=== PATIENT | male | born 1975 | race Asian ===

== ENCOUNTER → 2021-02-15 14:27 | Outpatient (CLI) | payer OTHER, SELFPAY ==
[2021-02-15] MEDS: COVID-19 VACC #1, MRNA(MOD) 100 MCG/0.5 ML VIAL IM (14:30)
== END ==
PROVIDERS: Visit Provider Internal Medicine
DX: Z23 Encounter for immunization (principal)
CPT/HCPCS: 0011A; 91301

== ENCOUNTER → 2021-03-16 15:26 | Outpatient (CLI) | payer OTHER, SELFPAY ==
[2021-03-16] MEDS: COVID-19 VACC #2, MRNA(MOD) 100 MCG/0.5 ML VIAL IM (15:34)
== END ==
PROVIDERS: Visit Provider Internal Medicine
DX: Z23 Encounter for immunization (principal)
CPT/HCPCS: 0012A; 91301

== ENCOUNTER 2021-07-19 06:12 | Emergency (ER) | payer OTHER, SELFPAY ==
[2021-07-19 06:15] VITALS: BP 117/92; PULSE 67; RESP 16; O2SAT 100; BMI 23.0
--- NOTE | 2021-07-19 06:18 | DI.RAD.S_ITS ---
PROCEDURE: XR FINGER RT MIN 2V INDICATIONS: smashed finger in machinery at work TECHNIQUE: AP hand, 2 views of the 3rd finger(s) acquired. COMPARISON: None. FINDINGS: Bones: No fractures or dislocations involving the 3rd finger. No suspicious bony lesions. Soft tissues: No suspicious soft tissue calcifications. IMPRESSION: No fracture. No acute osseous lesion. If symptoms and/or clinical suspicion for pathology persists, further assessment with repeat radiographs (7-10 days) or advanced imaging (e.g. CT, MRI or bone scan) should be considered. Dictated by: Lisset Michel MD, PhD on 07/19/2021 at 8:35 Approved by: Lisset Michel MD, PhD on 07/19/2021 at 8:36
[2021-07-19] MEDS: LIDOCAINE 1% (PF) 2 ML (06:54)
--- NOTE | 2021-07-19 07:12 | ED_ITS ---
HPI - Wound/Laceration General Chief Complaint: Wound/Laceration Stated Complaint: right hand 1 finger smashed at work Time Seen by Provider: 07/19/21 06:32 Source: patient Mode of arrival: Ambulatory Limitations: no limitations History of Present Illness HPI narrative: 46-year-old left-hand dominant male here for evaluation of a right middle finger injury. 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 He states the other individual lifted the material before him and he got his finger smashed under the bar that they were using to lift material. He did sustain injury to the pad of his right middle finger. Covered with a bandage in came to the emergency department for further evaluation. Related Data Home Medications Medication Instructions Recorded Confirmed No Known Home Medications 09/18/20 Allergies Allergy/AdvReac Type Severity Reaction Status Date / Time No Known Drug Allergies Allergy Unverified 09/18/20 15:11 Review of Systems Musculoskeletal Comments: Pain to the right middle finger Integumentary/Breasts Comments: Cut to the right middle finger Neurologic Neurologic: Reports system reviewed and no additional complaints, except as documented Hematologic/Lymphatic On Anticoagulants: No Patient History Medical History Healthy adult Social History Smoking Status: Current every day smoker Smoking Status: Current every day smoker Exam Initial Vital Signs Initial Vital Signs: Vital Signs Pulse Rate 67 07/19/21 06:15 Respiratory Rate 16 07/19/21 06:15 Blood Pressure 117/92 H 07/19/21 06:15 Pulse Oximetry 100 07/19/21 06:15 Const General: cooperative and comfortable Resp Effort & Inspection: normal respiratory effort Cardio Pulses: radial pulses present on the right Skin Other: Patient does have a partial avulsion of the pad of his right middle finger. There is no nail involvement. Does not cross the D IP joint. There is no bone involved. Neuro Sensory Exam: no sensory deficits noted Extrem Other: Skin injury to the right middle finger. Can flex and extend at the PIP and the IP joint. Psych Appearance: grossly normal Procedures Laceration Repair Laceration 1: Site: other (Right middle finger) Size (cm): 3 Description: flap Depth: simple, single layer Local Anesthetic: lidocaine 1% and with bicarb Amount of anesthesia used (mL): 5 Pre-repair: wound explored, irrigated extensively and deep structures intact Skin layer closed with: nylon Size (cm): 4-0 Number of sutures: 11 Technique: simple, interrupted Course Orders Ordered: ED Orders 07/19/21 06:18 XR finger RT min 2V Stat Discontinued Medications Bacitracin (Bacitracin Oint 0.9 Gm Pckt) 1 applic TOP NOW ONE Stop: 07/19/21 06:28 Last Admin: 07/19/21 07:39 Dose: 1 applic Documented by: BILLY Bacitracin (Bacitracin Oint 0.9 Gm Pckt) 1 applic TOP NOW ONE Stop: 07/19/21 07:21 Last Admin: 07/19/21 07:39 Dose: Not Given Documented by: BILLY Lidocaine/Sodium Bicarbonate (Lido 1%/Sod Bicarb 8.4% (10ml) 10 Ml Syringe) 10 ml INJ NOW ONE Stop: 07/19/21 07:21 Last Admin: 07/19/21 07:39 Dose: 10 ml Documented by: BILLY Vital Signs Vital signs: Vital Signs - 8 hr 07/19/21 06:15 Pulse Rate 67 Respiratory Rate 16 Blood Pressure 117/92 H Pulse Oximetry 100 MDM - Wound/Laceration Imaging Data Extremity x-ray #1: Radiologist's Impression: No acute bony abnormality involving the 3rd digit of the right hand [facility] Narrative Medical decision making narrative: Patient was neurovascularly intact. Digital block was performed by the night provider prior to my evaluation. I provided extra anesthesia with lidocaine with bicarb. This was a flap-type injury. I di d inform the patient that despite our interventions today the flap may not survive depending on the blood supply to it. It was closed as described above. There is no bony involvement. No foreign bodies noted. It was irrigated extensively prior to closure. Patient was given care instructions and return precautions. He expressed understanding and agreement. Discharge Plan Departure Patient Disposition: Home Clinical Impression: Laceration Instructions: DI for Laceration Repair Activity Restrictions/Additional Instructions: The bandage that was placed today in the emergency department should be left in place for the next 24 hours. After that you can take it off. You can wash your hands like normal using soap and water. You can place other topical antibiotic ointment on the area such as bacitracin or Neosporin. You can purchase these [id number]. The stitches do need to be removed in 7-10 days. This can be done by either your primary doctor or the walk-in clinic. Do not submerge your hand in any water until the skin has healed. You will ventrally be able to cover the area with just a Band-Aid. Return to the emergency department for any new or worsening symptoms. You can use Tylenol or ibuprofen for discomfort. Prescriptions: No Action No Known Home Medications RF: 0 Referrals: Miscellaneous,Doctor, MD [Primary Care Provider] -
[2021-07-19] MEDS: BACITRACIN OINT 0.9 GM PCKT 1 APPLIC TOP (07:39)
[2021-07-19] MEDS: LIDO 1%/SOD BICARB 8.4% (10ML) 10 ML SYRINGE INJ (07:39)
[2021-07-19 08:01] VITALS: TEMP 36.7
== END 2021-07-19 08:01 | disposition home or self-care (01) ==
PROVIDERS: Emergency Provider Emergency Medicine
DX: S61.212A Laceration without foreign body of right middle finger without damage to nail, initial encounter (principal); W23.0XXA Caught, crushed, jammed, or pinched between moving objects, initial encounter; Y99.0 Civilian activity done for income or pay
CPT/HCPCS: 12002; 73140; 99283; 99284

== ENCOUNTER → 2021-08-17 11:15 | Outpatient (CLI) | payer BC, SELFPAY ==
[2021-08-17 12:34] LABS: COVID19 -Nasal RAPID Negative (Negative)
== END ==
PROVIDERS: Visit Provider Physician Assistant
DX: Z20.822 Contact with and (suspected) exposure to COVID-19 (principal); R05 Cough
CPT/HCPCS: 87635

== ENCOUNTER 2024-07-16 09:55 | Emergency (ER) | payer BC, SELFPAY ==
[2024-07-16] VITALS (9 sets, daily range): BP systolic 115–163; BP diastolic 75–99; PULSE 54–64; RESP 12–22; TEMP 36.7; O2SAT 97–100; BMI 27.1
--- NOTE | 2024-07-16 10:15 | EKG_ITS ---
[address] [address] Test Date: 2024-07-16 Pat Name: Silvestre Shaw Department: Room: Gender: Male Rn Urgent Care: [facility] : 1975 Requested By: Order Number: [id number] Reading MD: Scott Escoto Measurements Intervals [place] Rate: 58 P: 51 ME: 146 QRS: 44 QRSD: 82 T: 39 QT: 398 QTc: 390 Interpretive Statements Sinus bradycardia Electronically Signed On 07-21-2024 9:11:00 PDT by Scott Escoto
--- NOTE | 2024-07-16 10:15 | DI.RAD.S_ITS ---
PROCEDURE: XR CHEST 1V INDICATIONS: chest pain TECHNIQUE: One view of the chest was acquired. COMPARISON: None. FINDINGS: Surgical changes and devices: None. Lungs and pleura: Lungs are clear. No pleural effusions or pneumothorax. Mediastinum: Mediastinal contours appear normal. Heart size is normal. Bones and chest wall: No suspicious bony lesions. Overlying soft tissues appear unremarkable. IMPRESSION: No acute cardiopulmonary abnormality is seen. Dictated by: Scar Cain M.D. on 07/16/2024 at 11:40 Approved by: Scar Cain M.D. on 07/16/2024 at 11:40
[2024-07-16 10:23] LABS: Add Manual Diff / Slide Review NO; Basophils Absolute Auto 100 /uL (0-100); Basophils Percent Auto 1.1 % (0-2); Eosinophils Absolute Auto 200 /uL (0-450); Hematocrit 44.7 % (41-53); Hemoglobin 14.9 g/dL (13.5-17.5); Lymphocytes Absolute Auto 1700 /uL (1100-4500); Lymphocytes Percent Auto 31.9 % (25-40); Mean Corpuscular HGB Conc 33.4 % (30-36); Mean Corpuscular Hemoglobin 31.3 PG (26-34); Mean Corpuscular Volume 93.9 fL (80-100); Monocytes Absolute Auto 500 /uL (0-900); Monocytes Percent Auto 9.1 % (3-14); Neutrophils Absolute Auto 3000 /uL (1500-7000); Neutrophils Percent Auto 54.9 % (50-75); Platelet Count 225 X10^3/uL (150-400); Red Blood Cell Count 4.77 X10^6/uL (4.5-5.9); Red Cell Distribution Width 14.5 % (11.6-14.8); White Blood Cell Count 5.5 X10^3/uL (4.5-11.0)
[2024-07-16 10:24] LABS: INR 0.9 (0.9-1.3); Prothrombin Time 10.2 SECONDS (9.4-12.5)
[2024-07-16 10:29] LABS: Alanine Aminotransferase 36 IU/L (<50); Albumin 4.6 g/dL (3.5-5.0); Albumin Globulin Ratio 1.3 (1.0-2.8); Alkaline Phosphatase 53 U/L (38-126); Aspartate Aminotransferase 39 IU/L (17-59); Bilirubin Total 0.7 mg/dL (0.2-1.3); Blood Urea Nitrogen 12 mg/dL (9-20); Carbon Dioxide 30 mmol/L (22-32); Chloride 101 mmol/L (98-107); Creatine Kinase 255 U/L (55-170); Estimated Glomerular Filt Rate > 60 mL/min (>60); Globulin 3.5 g/dL (1.7-4.1); Glucose 107 mg/dL (70-100); HEMOLYSIS < 15 (0-50); Lipase 50 U/L (23-300); Magnesium 2.2 mg/dL (1.6-2.3); Potassium 3.8 mmol/L (3.4-5.1); Sodium 136 mmol/L (137-145); Total Protein 8.1 g/dL (6.3-8.2)
--- NOTE | 2024-07-16 10:39 | ED_ITS ---
HPI - Dizziness General Chief Complaint: Dizziness Stated Complaint: Dizzy. Time Seen by Provider: 07/16/24 10:18 Source: patient Mode of arrival: Ambulatory History of Present Illness HPI Narrative: Patient is a 49-year-old male with a past medical history of vertigo coming into the ED from home for evaluation of dizziness. States that earlier today while he was at work he had a episode of vertigo, states it is similar to previous episodes, does take meclizine for this, states that it was worse than normal, states that it only lasts for several seconds to minutes and did improve after administration of meclizine prior to arrival. Currently he has not complaining of any headache visual disturbances dizziness chest pain shortness breath fever chills nausea vomiting abdominal pain or any other GI/ symptoms time. Related Data Previous Rx's Medication Instructions Recorded meclizine 25 mg tablet 25 mg PO DAILY PRN dizziness 14 07/16/24 days #14 tabs ondansetron 4 mg disintegrating 4 mg PO DAILY PRN nausea and 07/16/24 tablet vomiting 7 days #7 tabs Allergies Allergy/AdvReac Type Severity Reaction Status Date / Time No Known Drug Allergies Allergy Verified 07/19/23 14:57 Review of Systems Review of Systems Narrative: HEENT: Denies headache, eye drainage, eye irritation, head trauma, sore throat, voice change Cardiovascular: Denies any chest pain, palpitations, shortness of breath, tachycardia Respiratory: Denies any shortness of breath, cough, wheeze, stridor GI/: Denies any abdominal pain, nausea, vomiting, diarrhea, bright red blood per rectum, melanotic stools, urinary frequency, urinary retention, dysuria, hematuria MSK: Denies any joint pain, muscle pains, swelling Skin: Denies any rashes, lesions, discoloration Neuro: Denies any headache, lightheadedness, fainting, weakness, positive for dizziness Psych: Denies SI/HI Patient History Medical History Healthy adult Social History Smoking Status: Current every day smoker Smoking Status: Current every day smoker alcohol intake frequency: 0-2 drinks per day Substance Use Type: does not use Exam Narrative Exam Narrative: General: Cooperative, comfortable, well-developed, not in acute distress HEENT: Normocephalic, atraumatic, PERRLA, normal sclera, eyelids normal, Neck: Active full range of motion, atraumatic Chest: Normal to inspection, negative crepitus, no overlying erythema ecchymosis Respiratory: Normal respiratory effort, not in acute respiratory distress, clear to auscultation bilaterally negative cough, wheeze, tachypnea, rhonchi, rales Cardiology: Regular rate rhythm negative gallop, murmur, rubs GI/: Normal to inspection, soft, nonrigid, no tenderness to palpation, exam deferred MSK: Full range of active range of motion of all 4 extremities, atraumatic Skin: No rashes lesions noted Neuro: Alert awake oriented x3, moves all 4 extremities spontaneously, cranial nerves intact, able to answer all questions appropriately follows commands appropriately, NIH of 0 Psych: Cooperative, negative suicidal or homicidal ideations Initial Vital Signs Initial Vital Signs: Vital Signs Temperature 98.1 F 07/16/24 09:57 Pulse Rate 64 07/16/24 09:57 Respiratory Rate 14 07/16/24 09:57 Blood Pressure 163/99 H 07/16/24 09:57 Pulse Oximetry 99 07/16/24 09:57 Oxygen Delivery Method Room Air 07/16/24 09:57 Course Orders Ordered: ED Orders 07/16/24 10:10 Complete Blood Count AUTO DIFF Stat Comprehensive Metabolic Panel Stat Lipase Stat Magnesium Stat NT-proBNP (BNP-Adult 18+) Stat Prothrombin Time INR Stat Troponin & CK Cardiac Panel Stat 07/16/24 10:15 XR chest 1V Stat EKG-12 Lead Stat 07/16/24 10:41 CT angio head and neck Stat 07/16/24 10:42 CT head/brain wo con Stat EKG-12 Lead Stat Sodium Chloride (Normal Saline 0.9%) 1,000 mls @ 150 mls/hr IV CONT KAYE Last Admin: 07/16/24 11:11 Dose: 150 mls/hr Documented By: CAMPOS Ondansetron HCl (Ondansetron 4 Mg/2 Ml Inj) 4 mg IV NOW PRN PRN Reason: Nausea And Vomiting Last Admin: 07/16/24 11:10 Dose: 4 mg Documented By: CAMPOS Ondansetron HCl (Ondansetron 4 Mg Odt) 4 mg SL NOW PRN PRN Reason: Nausea And Vomiting Vital Signs Vital signs: Vital Signs - 8 hr 07/16/24 09:57 07/16/24 10:25 Temperature 98.1 F Pulse Rate 64 62 Respiratory Rate 14 22 Blood Pressure 163/99 H Pulse Oximetry 99 100 Oxygen Delivery Method Room Air MDM - Dizziness Differential Diagnosis Differential diagnosis: Likely other (CVA, vertigo, electrolyte abnormality, ACS, pneumonia, electrolyte abnormality) Lab Data 07/16/24 10:10 07/16/24 10:10 Labs: Lab Results 07/16/24 Range/Units 10:10 WBC 5.5 (4.5-11.0) X10^3/uL RBC 4.77 (4.5-5.9) X10^6/uL Hgb 14.9 (13.5-17.5) g/dL Hct 44.7 (41-53) % MCV 93.9 (80-100) fL MCH 31.3 (26-34) PG MCHC 33.4 (30-36) % RDW 14.5 (11.6-14.8) % Plt Count 225 (150-400) X10^3/uL Neut % (Auto) 54.9 (50-75) % Lymph % (Auto) 31.9 (25-40) % Thurston % (Auto) 9.1 (3-14) % Eos % (Auto) 3.0 (2-4) % Baso % (Auto) 1.1 (0-2) % Neut # (Auto) 3000 (1877-1741) /uL Lymph # (Auto) 1700 (2691-2915) /uL Thurston # (Auto) 500 (0-900) /uL Eos # (Auto) 200 (0-450) /uL Baso # (Auto) 100 (0-100) /uL PT 10.2 (9.4-12.5) SECONDS INR 0.9 (0.9-1.3) Sodium 136 L (137-145) mmol/L Potassium 3.8 (3.4-5.1) mmol/L Chloride 101 (98-107) mmol/L Carbon Dioxide 30 (22-32) mmol/L BUN 12 (9-20) mg/dL Creatinine 0.75 (0.66-1.25) mg/dL Estimated GFR > 60 (>60) mL/min BUN/Creatinine Ratio 16.0 (6-22) Glucose 107 H (70-100) mg/dL Calcium 9.0 (8.4-10.2) mg/dL Magnesium 2.2 (1.6-2.3) mg/dL Total Bilirubin 0.7 (0.2-1.3) mg/dL AST 39 (17-59) IU/L ALT 36 (<50) IU/L Alkaline Phosphatase 53 (38-126) U/L Total Creatine Kinase 255 H (55-170) U/L Troponin I < 0.012 (0.01-0.034) ng/mL NT-Pro-B Natriuret Pep < 20 (<125) pg/mL Total Protein 8.1 (6.3-8.2) g/dL Albumin 4.6 (3.5-5.0) g/dL Globulin 3.5 (1.7-4.1) g/dL Albumin/Globulin Ratio 1.3 (1.0-2.8) Lipase 50 (23-300) U/L Point of Care Testing Glucose POC 107 MDM Narrative Medical decision making narrative: Patient is a 49-year-old male past medical history of vertigo comes into the ED from home for evaluation of vertiginous like symptoms. States that several hours ago he was at work when he had onset of his vertigo, states that his similar in sensation but more severe than in the past. States that it did resolve after administration of meclizine. Patient at time of initial evaluation asymptomatic NIH of 0, CT CTA head and neck without any abnormalities, lab work unremarkable symptoms more likely peripheral vertigo rather than central vertigo. Patient was given strict return precautions verbalized understanding and will be safe for discharge home with outpatient follow-up. Discharge Plan Departure Patient Disposition: Home Clinical Impression: Vertigo Prescriptions: New meclizine 25 mg tablet 25 mg PO DAILY PRN (Reason: dizziness) 14 Days Qty: 14 0RF ondansetron 4 mg tablet,disintegrating 4 mg PO DAILY PRN (Reason: nausea and vomiting) 7 Days Qty: 7 0RF Referrals: Miscellaneous,Doctor, MD [Primary Care Provider] - Stand Alone Forms: Patient Portal/API
[2024-07-16 10:41] LABS: NT-proBNP (BNP-Adult 18+) < 20 pg/mL (<125); Troponin I < 0.012 ng/mL (0.01-0.034)
--- NOTE | 2024-07-16 10:41 | DI.CT.S_ITS ---
PROCEDURE: CT ANGIO HEAD AND NECK INDICATIONS: Dizziness TECHNIQUE: After the administration of intravenous contrast, 1 mm thick sections acquired from the aortic arch through the [place] of [place]. 3-dimensional fzopmqn-[id number]-vfettqesrx (MIP) and/or volume rendering reformats were acquired of the central intracranial vasculature and neck separately. For radiation dose reduction, the following was used: automated exposure control, adjustment of mA and/or kV according to patient size. COMPARISON: [facility], CR, XR CHEST 1V, 07/16/2024, 10:19. [facility], CT, CT HEAD/BRAIN WO CON, 07/16/2024, 10:56. FINDINGS: Image quality: Limited by bolus timing, with venous contamination. There is streak artifact seen through the level of the shoulders. BRAIN: CSF spaces: Ventricles are normal in size and shape. Basal cisterns are patent. No extra-axial fluid collections. Brain: No significant abnormality of the brain can be seen. Skull and face: Calvarium and facial bones appear intact, without suspicious lesions. Orbits appear normal. Sinuses: Sinuses and mastoids are clear. HEAD CT ANGIOGRAPHY: Anterior circulation: Intracranial internal carotid arteries are normal in size and flow. The flow within the paired anterior cerebral arteries is normal and symmetric. The flow within the middle cerebral arteries is normal and symmetric. The anterior communicating artery is seen. No aneurysms are seen. Posterior circulation: Visualized portions of the vertebral arteries demonstrate normal caliber, and join to form a normal appearing basilar artery. Flow within the posterior cerebral arteries is normal and symmetric. No aneurysms are seen. NECK CT ANGIOGRAPHY: Carotid system: The great vessels demonstrate a conventional anatomy as they arise from the aortic arch. The origins of the common carotid arteries appear patent. The common carotid arteries demonstrate normal caliber and courses. The bifurcation regions are both widely patent. The internal carotid arteries demonstrate normal calibers and courses. Posterior circulation: The origins of the vertebral arteries both appear widely patent. The more superior extracranial portions of both vertebral arteries also demonstrate normal courses and calibers. They join to form a normal appearing basilar artery. Soft tissues: Visualized neck soft tissues demonstrate no suspicious abnormalities. Bones: No suspicious bony lesions. Visualized cervical spine appears normally aligned. IMPRESSION: No significant intracranial arterial abnormality is seen. No significant abnormality is seen within the arteries of the neck. No findings of dissection are seen. Any quantitative measurements of stenosis were performed using NASCET criteria. Dictated by: Cosme Bullard M.D. on 07/16/2024 at 10:11 Approved by: Cosme Bullard M.D. on 07/16/2024 at 10:12
--- NOTE | 2024-07-16 10:42 | DI.CT.S_ITS ---
PROCEDURE: CT HEAD/BRAIN WO CON INDICATIONS: Dizziness TECHNIQUE: Noncontrast 4.5 mm thick angled axial sections acquired from the foramen magnum to the vertex, with coronal and sagittal reformats. For radiation dose reduction, the following was used: automated exposure control, adjustment of mA and/or kV according to patient size. COMPARISON: [facility], CR, XR CHEST 1V, 07/16/2024, 10:19. [facility], CT, CT ANGIO HEAD AND NECK, 07/16/2024, 10:56. FINDINGS: Image quality: Diagnostic. CSF spaces: Basal cisterns are patent. No extra-axial fluid collections. Ventricles are normal in size and shape. Brain: No midline shift. No intracranial masses or hemorrhage. Curry-white matter interface is normal. Skull and face: Calvarium and visualized facial bones are intact, without suspicious lesions. Sinuses: There is moderate mucosal thickening within the left maxillary sinus, with milder mucosal thickening seen elsewhere within the paranasal sinuses. No abnormal fluid is seen within the mastoid air cells. IMPRESSION: No imaging explanation is found for this patient's presenting symptoms. No acute intracranial process is seen. If there is strong clinical suspicion for an acute stroke, please consider a brain MRI for further evaluation, as it is more sensitive (assuming that there is no contraindication to MRI). Additional findings: Paranasal sinus disease Dictated by: Cosme Bullard M.D. on 07/16/2024 at 10:10 Approved by: Cosme Bullard M.D. on 07/16/2024 at 10:11
[2024-07-16] MEDS: ONDANSETRON 4 MG/2 ML INJ IV (11:10)
[2024-07-16] MEDS: SODIUM CHLORIDE 0.9% 1,000 ML 150 ML IV (11:11)
== END 2024-07-16 12:30 | disposition home or self-care (01) ==
PROVIDERS: Emergency Provider Student in an Organized Health Care Education/Training Program
DX: R42 Dizziness and giddiness (principal)
CPT/HCPCS: 36415; 70450; 70496; 70498; 71045; 80053; 82550; 82962; 83690; 83735; 83880; 84484; 85025; 85610; 93005; 96361; 96374; 99284; J2405; Q9967

== ENCOUNTER → 2025-04-01 08:15 | Outpatient (CLI) | payer BC, SELFPAY ==
[2025-04-01 08:41] LABS: Add Manual Diff / Slide Review NO; Basophils Absolute Auto 0 /uL (0-100); Basophils Percent Auto 0.8 % (0-2); Eosinophils Absolute Auto 200 /uL (0-450); Eosinophils Percent Auto 4.7 % (2-4); Hematocrit 42.5 % (41-53); Hemoglobin 14.1 g/dL (13.5-17.5); Lymphocytes Absolute Auto 1300 /uL (1100-4500); Lymphocytes Percent Auto 36.3 % (25-40); Mean Corpuscular HGB Conc 33.1 % (30-36); Mean Corpuscular Hemoglobin 31.2 PG (26-34); Mean Corpuscular Volume 94.1 fL (80-100); Monocytes Absolute Auto 300 /uL (0-900); Monocytes Percent Auto 8.9 % (3-14); Neutrophils Absolute Auto 1800 /uL (1500-7000); Neutrophils Percent Auto 49.3 % (50-75); Platelet Count 206 X10^3/uL (150-400); Red Blood Cell Count 4.52 X10^6/uL (4.5-5.9); White Blood Cell Count 3.7 X10^3/uL (4.5-11.0)
[2025-04-01 08:49] LABS: Hemoglobin A1C% w Est Avg Glu 5.9 % (4.0-6.0)
[2025-04-01 09:05] LABS: Alanine Aminotransferase 31 IU/L (<50); Albumin 4.4 g/dL (3.5-5.0); Albumin Globulin Ratio 1.7 (1.0-2.8); Alkaline Phosphatase 51 U/L (38-126); Aspartate Aminotransferase 28 IU/L (17-59); BUN Creatinine Ratio 18.9 (6-22); Bilirubin Total 0.6 mg/dL (0.2-1.3); Blood Urea Nitrogen 14 mg/dL (9-20); Calcium 9.1 mg/dL (8.4-10.2); Carbon Dioxide 29 mmol/L (22-32); Chloride 104 mmol/L (98-107); Cholesterol 176 mg/dL (140-199); Estimated Glomerular Filt Rate > 60 mL/min (>60); Globulin 2.6 g/dL (1.7-4.1); Glucose 105 mg/dL (70-99); HDL Cholesterol 41 mg/dL (40-60); HEMOLYSIS < 15 (0-50); LDL Cholesterol Calculated 120 mg/dL (<100); Potassium 4.3 mmol/L (3.4-5.1); Sodium 137 mmol/L (137-145); Triglycerides 77 mg/dL (35-150)
[2025-04-01 09:32] LABS: TSH w/ Reflex to FT4 0.11 uIU/mL (0.47-4.68)
[2025-04-01 09:33] LABS: Prostate Specific Antigen Scrn 0.851 ng/mL (0.1-4.0)
[2025-04-01 09:48] LABS: HIV 1 & 2 Ab/Ag 4th Gen Combo NEGATIVE (NEGATIVE); Hep C Virus Ab w/Reflex Quant NEGATIVE s/c (NEGATIVE)
[2025-04-01 10:00] LABS: Free T4, Direct Thyroxine 1.03 ng/dL (0.78-2.19)
== END ==
LOC: LAB 08:16
PROVIDERS: PCP Family Medicine; Referring Provider Family Medicine; Visit Provider Family Medicine
DX: Z13.9 Encounter for screening, unspecified (principal); Z13.220 Encounter for screening for lipoid disorders; Z13.1 Encounter for screening for diabetes mellitus; Z11.59 Encounter for screening for other viral diseases; Z11.4 Encounter for screening for human immunodeficiency virus [HIV]; Z12.5 Encounter for screening for malignant neoplasm of prostate; R42 Dizziness and giddiness; I10 Essential (primary) hypertension
CPT/HCPCS: 36415; 80053; 80061; 83036; 84439; 84443; 85025; 86803; 87389; G0103

== ENCOUNTER → 2025-04-10 08:16 | Outpatient (CLI) | payer BC, SELFPAY ==
--- NOTE | 2025-04-10 08:17 | DI.CT.S_ITS ---
PROCEDURE: CT LUNG LOW DOSE SCREENING INDICATIONS: Lung cancer screening TECHNIQUE: Noncontrast 2.0-2.5 mm thick sections acquired from the pulmonary apices to the posterior costophrenic angles. 7 mm thick axial MIP, and 5 mm coronal and sagittal reformats were then acquired. For radiation dose reduction, the following was used: automated exposure control, adjustment of mA and/or kV according to patient size. COMPARISON: None. FINDINGS: Image quality: Diagnostic. Lower Neck: No enlarged lymph nodes. Thyroid: No thyroid nodules which require sonographic follow up, per consensus guidelines. Axillae: No enlarged lymph nodes. Chest Wall: Unremarkable. Bones: Unremarkable. Lungs and Pleura: No pneumothorax or pleural effusions. No consolidation or suspicious nodules. Heart: Heart size is normal. No pericardial effusion. Thoracic Vessels: The aorta and pulmonary arteries demonstrate normal size. Mediastinum and Kylee: No enlarged lymph nodes. Esophagus: No wall thickening. No hiatal hernia. Upper Abdomen: Visualized upper abdomen solid organs and bowel loops appear normal. IMPRESSION: No suspicious pulmonary nodules. LUNG-RADS 1; continued annual screening, if eligible. Clinically Significant Non-pulmonary Findings: None. Dictated by: Alan Zelaya M.D. on 04/11/2025 at 15:16 Approved by: Alan Zelaya M.D. on 04/11/2025 at 15:20
== END ==
LOC: CT 08:17
PROVIDERS: PCP Family Medicine; Referring Provider Family Medicine; Visit Provider Family Medicine
DX: Z12.2 Encounter for screening for malignant neoplasm of respiratory organs (principal); F17.210 Nicotine dependence, cigarettes, uncomplicated
CPT/HCPCS: 71271

== ENCOUNTER 2025-06-01 11:48 | Day surgery (SDC) | payer BC, SELFPAY ==
--- NOTE | 2025-06-01 13:10 | P.HP_ITS ---
History of Present Illness History of Present Illness Date Patient Seen: 06/01/25 Chief complaint: SDC Narrative: For screening colonoscopy [facility] Medical History (Updated 04/22/25 @ 17:14 by Abraham Thomas MD) Anxiety Foot pain Healthy adult Social History number of children: 2 household members: children lives independently: Yes occupational status: employed ([employer]) Tobacco: How many years used: 26 alcohol intake: former substance use type: does not use Meds Home Medications and Allergies Home Medications ?Medication ?Instructions ?Recorded ?Confirmed ?Type ondansetron 4 mg disintegrating 4 mg PO Q8H 03/25/25 0 03/25/25 History tablet meclizine 25 mg tablet 25 mg PO DAILY PRN dizziness #30 04/22/25 04/22/25 Rx tabs sodium,potassium,mag sulfates 17.5 See Rx Instructions PO .COMPLEX 04/23/25 Rx gram-3.13 gram-1.6 gram oral soln #354 mL (Suprep Bowel Prep Kit) Allergies Allergy/AdvReac Type Severity Reaction Status Date / Time No Known Drug Allergies Allergy Verified 03/25/25 14:51 Exam Narrative Exam Narrative: Oropharynx free of lesions Chest clear to auscultation percussion Cardiac exam reveals no S3 or murmur Assessment & Plan Assessment & Plan narrative: Need for 1st screening colonoscopy. Risks, benefits, alternatives have been explained. Time-Based Coding :: [TOTAL MINUTES] spent with patient and on the chart (including review of chart, obtaining history, exam, reviewing outside data, placing orders, documenting exam and treatment plan, and counseling patient) on [DATE]. [employer] Document charge(s): No
--- NOTE | 2025-06-01 13:13 | PM.OP.COLON ---
Operative Date/Time/Diagnoses Date of procedure: 06/01/25 Time of procedure: 14:42 Pre-op diagnosis: See indication and findings Post-op diagnosis: same Procedure & Clinicians Study performed: Colonoscopy Same procedure(s) as scheduled: Yes Indications: For screening colonoscopy Surgeon: Christina Wolf Anesthesia Type: Other Procedure Notes Procedure in detail: After informed consent was obtained the patient was placed in left lateral decubitus position. The video upper scope was placed into the oropharynx and with the patient's help swallowed into the esophagus. The esophagus stomach and duodenal were carefully examined. On withdrawal, retroflexed view the GE junction was performed. The scope was removed. The patient tolerated the procedure well. Blood loss none Complications none Sedation mac Finding normal colonoscopy to cecum Patient should have follow-up colonoscopy in 10 years
[2025-06-01 13:38] VITALS: BP 117/82; PULSE 63; RESP 16; TEMP 36.2; O2SAT 100
[2025-06-01] MEDS: LACTATED RINGERS 1,000 ML 42 ML IV (14:01)
[2025-06-01 14:46] VITALS: BP 146/59; PULSE 71; RESP 12; TEMP 36.2; O2SAT 97
[2025-06-01 14:50] VITALS: BP 80/57; PULSE 67; RESP 14; O2SAT 96
[2025-06-01 14:55] VITALS: BP 86/59; PULSE 60; RESP 12; O2SAT 97
[2025-06-01 15:03] VITALS: BP 95/65; PULSE 64; RESP 12; TEMP 36.2; O2SAT 99
== END 2025-06-01 15:25 | disposition home or self-care (01) ==
PROVIDERS: PCP Family Medicine; Referring Provider Internal Medicine Gastroenterology; Visit Provider Internal Medicine Gastroenterology
PROC: 0DJD8ZZ Inspection of Lower Intestinal Tract, Via Natural or Artificial Opening Endoscopic (ICD-10-PCS; CPT 45378; principal; 2025-06-01 13:30)
DX: Z12.11 Encounter for screening for malignant neoplasm of colon (principal); F17.200 Nicotine dependence, unspecified, uncomplicated
CPT/HCPCS: G0121; J2704